=== PATIENT | female | born 2000 | race Caucasian/White ===

== ENCOUNTER 2020-02-17 11:38 | Emergency (ER) | payer SELFPAY ==
[~2020-02-17] VITALS: Ht 162.6 cm; Wt 50.0 kg
[2020-02-17 11:43] VITALS: BP 146/93; TEMP 97.8
[2020-02-17 12:26] VITALS: PULSE 74
== END 2020-02-17 12:26 | disposition home or self-care (01) ==
LOC: COL.ER 11:38
DX: S61.211A Laceration without foreign body of left index finger without damage to nail, initial encounter (principal); F17.290 Nicotine dependence, other tobacco product, uncomplicated; W26.8XXA Contact with other sharp object(s), not elsewhere classified, initial encounter; Y92.59 Other trade areas as the place of occurrence of the external cause

== ENCOUNTER 2020-04-16 20:05 | Emergency (ER) | payer SELFPAY ==
[~2020-04-16] VITALS: Ht 162.6 cm; Wt 50.0 kg
[2020-04-16 21:05] LABS: BASO # 0.1 (0.0-0.2); BASO % 0.5 % (0.0-2.0); EOS # 0.1 (0.0-0.7); EOS % 0.6 % (0-4.0); GRAN % 63.6 % (42.2-75.2); HEMATOCRIT 43.1 % (37.0-47.0); HEMOGLOBIN 14.5 g/dl (12.5-16.0); LYMPH # 3.8 (1.2-3.4); LYMPH % 30.3 % (20.0-51.0); MEAN CELL VOLUME 92 fl (80.0-100.0); MEAN CORPUSCULAR HEMOGLOBIN 31 pg (27.0-31.0); MEAN CORPUSCULAR HGB CONC 34 g/dl (33.0-37.0); MEAN PLATELET VOLUME 10.9 fl (7.4-10.4); MONO # 0.6 (0.1-0.6); MONO % 4.8 % (1.7-9.3); PLATELET COUNT 234 K/mm3 (130-400); RED BLOOD COUNT 4.71 M/mm3 (4.10-5.30); REDCELL DISTRIBUTION WIDTH-CV 13.3 % (11.5-14.5)
[2020-04-16 21:12] LABS: ALANINE AMINOTRANSFERASE 27 U/L (4-34); ALCOHOL(ethanol),MEDICAL 296 mg/dL; ALKALINE PHOSPHATASE 79 U/L (50-136); ANION GAP 14 mmol/L (7-16); AST,SGOT 48 U/L (15-37); BILIRUBIN,TOTAL 0.6 mg/dL (0.0-1.0); BLOOD UREA NITROGEN 11 mg/dL (7-17); CALCIUM 9.9 mg/dL (8.4-10.2); CARBON DIOXIDE 27 mmol/L (22-30); CHLORIDE 104 mmol/L (98-107); CREATININE, serum 0.76 (0.52-1.25); GLUCOSE 104 mg/dL (74-106); SODIUM 146 mmol/L (137-145); TOTAL PROTEIN 8.6 gm/dL (6.4-8.2)
[2020-04-16 21:16] LABS: ACETAMINOPHEN < 10 ug/mL (10-30); SALICYLATE < 1.0 mg/dL
[2020-04-16 22:03] LABS: COLLECTION METHOD CLEAN CATCH
[2020-04-16 22:15] LABS: PH 5 (5-8); URINE APPEARANCE Clear; URINE BACTERIA None Seen /hpf; URINE BILIRUBIN Negative (NEGATIVE); URINE BLOOD Negative (NEGATIVE); URINE COLOR Straw; URINE GLUCOSE Negative (NEGATIVE); URINE KETONE Negative (NEGATIVE); URINE LEUKOCYTE ESTERASE Negative (NEGATIVE); URINE NITRATE Negative (NEGATIVE); URINE PROTEIN(semi-quant) Negative (NEGATIVE); URINE RBC 0-2 /hpf; URINE UROBILINOGEN Negative (NEGATIVE); URINE WBC 0-2 /hpf
[2020-04-16 22:16] LABS: TRICYCLIC ANTIDEPRESS URINE NEGATIVE
[2020-04-17 03:20] LABS: ACETAMINOPHEN < 10 ug/mL (10-30); ALCOHOL(ethanol),MEDICAL 166 mg/dL
[2020-04-17 09:02] VITALS: BP 158/91; PULSE 73; TEMP 98.1
== END 2020-04-17 09:02 | disposition home or self-care (01) ==
LOC: COL.ER 20:05
PROVIDERS: Nurse Practitioner Primary Care
DX: F10.129 Alcohol abuse with intoxication, unspecified (principal); R45.851 Suicidal ideations; Y90.8 Blood alcohol level of 240 mg/100 ml or more